=== PATIENT | male | born 1995 | race Hispanic/Latino ===

== ENCOUNTER 2016-10-24 02:05 | Emergency (ER) | payer OTHER, SELFPAY ==
[2016-10-24] MEDS ORDERED: Bupivacaine 0.5% 10 ML VIAL ONE (02:14)
[2016-10-24] MEDS ORDERED: Ibuprofen 800 MG TAB ONE (02:15)
--- NOTE | 2016-10-24 02:32 | ERRECORD ---
[facility] EMERGENCY RECORD HPI TOOTHACHE (02: [facility]) CHIEF COMPLAINT: Patient presents for evaluation of toothache. HISTORIAN: History provided by patient, 20M presents with one month of worsening left lower jaw dental pain. Denies fever or chills. States it is gradually getting worse. Denies trauma, difficulty swallowing. LOCATION: Symptoms are localized. TEETH: lower left 3rd molar (#17),. QUALITY: Pain is dull in nature, described as aching, described as pressure-like. TIME COURSE: Gradual onset of symptoms, Symptoms are worsening. ASSOCIATED WITH: Associated with facial pain. EXACERBATED BY: Patient's condition exacerbated by chewing. RELIEVED BY: Nothing tried for relief. ROS (:22 [facility] CONSTITUTIONAL: Negative constitutional review of systems, Historian denies chills, denies fever. EYES: Negative eye review of systems, Historian denies eye pain, denies eye discharge, denies vision changes. ENT: Historian denies rhinorrhea, Historian denies sore throat. left posterior jaw dental pain. CARDIOVASCULAR: Negative cardiovascular review of systems, Historian denies chest pain, denies palpitations. RESPIRATORY: Negative respiratory review of systems, Historian denies cough, denies shortness of breath. GI: Negative gastrointestinal review of systems, Historian denies abdominal pain, denies constipation, denies diarrhea, denies nausea, denies vomiting. GENITOURINARY MALE: Negative genitourinary review of systems, Historian denies dysuria, denies hematuria. MUSCULOSKELETAL: Negative musculoskeletal review of systems, Historian denies back pain, denies fall, denies injury, denies neck pain. SKIN: Negative skin review of systems, Historian denies rash, denies skin changes. NEUROLOGIC: Negative neurologic review of systems, Historian denies headache. HEMO/LYMPHATIC: Normal hematologic/lymphatic system review, Historian denies abnormal blood clotting. PAST MEDICAL HISTORY (02:21 MVIL) MEDICAL HISTORY: Flu vaccine not up to date, Tetanus not up to date, Pneumococcal vaccine not up to date, No past medical history. verified 07/30/14. REVIEWED 10/24/16. MALE SURGICAL HISTORY: Patient has no surgical history. verified 07/30/14.REVIEWED 10/24/16. PSYCHIATRIC HISTORY: No previous psychiatric history. verified 07/30/14. REVIEWED 10/24/16. SOCIAL HISTORY: Patient currently uses tobacco, Patient &a-1R&a+25V*p+0X*[id number]*c202B*c15G*c2P*p-0X&a-25V&a+1R Name: Aren Rose : 1995 M20 MedRec: [id number] AcctNum: [id number] Prepared: Barbie Oct 24, 2016 02:29 by Interface Page 1 of 3 pMD [facility] EMERGENCY RECORD smokes cigarettes, Patient smokes ocassionally, Patient denies alcohol use, Patient denies drug use. verified 07/30/14. REVIEWED 10/24/16. KNOWN ALLERGIES No Known Drug Allergies CURRENT MEDICATIONS No recorded medications VITAL SIGNS (02:07 [place]) VITAL SIGNS: BP: 137/83, Pulse: 116, Resp: 20, Temp: 98.1 (Oral), Pain: 8, O2 sat: 99 on Room Air, Time: 10/24/2016 02:07. PHYSICAL EXAM (02:22 [facility]) CONSTITUTIONAL: Vital signs reviewed, Patient afebrile, Pulse normal, Blood pressure normal, Respiratory rate normal, Patient appears non toxic, Patient appears pain free, Patient alert and oriented to person, place and time. HEAD: Head exam normal, Head exam included findings of head atraumatic, normocephalic. EYES: Eye exam normal, Eye exam included findings of eyelids normal to inspection, Pupils equally round and reactive to light, Extraocular muscles intact, no nystagmus. ENT: ENT exam normal, Ear exam normal, external ear normal, tympanic membranes normal, no bleeding, Pharynx exam normal, Uvula exam normal, Tonsil exam normal, Mouth exam normal, mucous membranes moist, Teeth with, erupting left lower wisdom tooth. NECK: Neck exam normal, Neck exam included findings of normal range of motion, Trachea midline, no meningeal signs, no cervical adenopathy, no tenderness. RESPIRATORY CHEST: Respiratory and chest exam normal, Respiratory exam included findings of no respiratory distress, Breath sounds clear. CARDIOVASCULAR: Cardiovascular assessment normal, Cardiovascular exam included findings of heart rate regular rate and rhythm, Heart sounds normal. ABDOMEN MALE: Abdominal exam included findings of abdomen nontender, Bowel sounds normal, no distension, no mass, no pulsatile masses, no peritoneal signs, no rigidity, no guarding, no rebound, Rovsing's sign absent. BACK: Back exam normal, Back exam included findings of normal inspection, range of motion normal, no tenderness. UPPER EXTREMITY: Upper extremity exam normal, Upper extremity exam included findings of inspection normal, Range of motion normal, Motor strength normal, Sensation intact, Radial pulse normal. LOWER EXTREMITY: Lower extremity exam normal, Lower extremity exam included findings of inspection normal, Range of motion normal, Motor strength normal, Sensation intact, Posterior tibial pulse &a-1R&a+25V*p+0X*o1198Q*c202B*c15G*c2P*p-0X&a-25V&a+1R Name: Aren Rose : 1995 M20 MedRec: [id number] AcctNum: [id number] Prepared: jyoti Oct 24, 2016 02:29 by Interface Page 2 of 3 pMD [facility] EMERGENCY RECORD normal, Pedal pulse normal. NEURO: Neuro exam normal, Neuro exam findings include patient oriented to person, place and time, Speech normal, Gait normal. SKIN: Skin exam normal, Skin exam included findings of skin warm, dry, and normal in color, no rash. PSYCHIATRIC: Psychiatric exam normal, Normal affect. MEDICATION ADMINISTRATION SUMMARY Drug Name: Motrin, Dose Ordered: 800 mg, Route: Oral, Status: Given, Time: 02:26 10/24/2016, Drug Name: bupivacaine, Dose Ordered: 1 amp(s), Route: Subcutaneous, Status: Given, Time: 02:23 10/24/2016, Detailed record available in Medication Service section. DOCTOR NOTES (:23 [facility]) TEXT: Patient has left posterior jaw wisdom tooth eruption. Performed infraalveolar block, encouraged follow up with dentist for definitive care. PATIENT STATUS: Patient has improved since arrival to emergency department. PATIENT PLAN: The patient will be discharged, The patient will follow up with primary care physician. PROBLEM LIST No recorded problems DIAGNOSIS (02:20 JJA) FINAL: PRIMARY: dental pain. PRESCRIPTION No recorded prescriptions DISPOSITION PATIENT: Disposition Type: Discharge, Disposition: *Discharge Home. (02:20 KARLA) Patient left the department. (02:28 MVFELIPE) Rhodes: DAVID=MD Ugarte Jason MVIL=CAROLINA Savage, Celina &a-1R&a+25V*p+0X*[id number]*c202B*c15G*c2P*p-0X&a-25V&a+1R Name: Aren Rose : 1995 M20 MedRec: [id number] AcctNum: [id number] Prepared: Barbie Oct 24, 2016 02:29 by Interface Page 3 of 3 pMD MTDD
--- NOTE | 2016-10-24 02:37 | PICIS ---
[facility] EMERGENCY RECORD TRIAGE (SunOct 24, 2016 02:13 MVIL) TRIAGE NOTES: C/O LEFT LOWER WISDOM TOOTH PAIN X 1 MOS. INTERMITTENT. TONIGHT BEING THE WORST. (SunOct 24, 2016 02:13 MVIL) PATIENT: NAME: Aren Rose, AGE: 20, GENDER: male, : Sat 1995, TIME OF GREET: SunOct 24, 2016 02:05, PREFERRED LANGUAGE: Hungarian, ETHNICITY: or , ECODE BILLING MAP: [facility], SSN: [id number], Zip Code: [address], KG WEIGHT: 83.91, HEIGHT/LENGTH: 167.64cm, BMI: 29.85, PHONE: , , , PERSON ID: [id number], PCP: NONE. (SunOct 24, 2016 02:13 MVIL) COMPLAINT: TOOTHACHE. (SunOct 24, 2016 02:13 MVIL) ADMISSION: URGENCY: 4 Non Urgent, ADMISSION SOURCE: Home, TRANSPORT: CAR, BED: ER -03. (SunOct 24, 2016 02:13 MVIL) ASSESSMENT: Assessment: C/O LOWER JAW DENTAL PAIN X 1 MOS. INTERMITTENT BUT TONIGHT IS AT ITS WORST., Symptoms began 10/24/2016 02:20, Symptoms began greater than 1 week ago. (02:21 MVIL) PAIN: Patient complains of pain described as, aching, Location LOWER JAW WISDOM TOOTH, Pain is constant, No aggravating factors, No relieving factors. (02:21 MVIL) IMMUNIZATIONS: Flu vaccine not up to date, Tetanus not up to date, Pneumococcal vaccine not up to date. (02:21 MVIL) SIRS SCORING: Heart Rate 110-139 (2), Temp range 96.8-101.1 (0), respiratory rate 12-24 (0), Mental Status altered: no (0), Total SIRS Score 2. (02:21 MVIL) TRIAGE SCREENING: Patient denies suicidal ideation, Patient denies presence of domestic violence. (02:21 MVIL) PROVIDERS: TRIAGE NURSE: Celina Savage RN. (SunOct 24, 2016 02:13 MVIL) VITAL SIGNS: BP 137/83, Pulse 116, Resp 20, Temp 98.1, (Oral), Pain 8, O2 Sat 99, on Room Air, Time 10/24/2016 02:07. (02:07 MVIL) PREVIOUS VISIT ALLERGIES: No Known Drug Allergies. (SunOct 24, 2016 02:13 MVIL) No Known Drug Allergies. (02:21 MVIL) KNOWN ALLERGIES No Known Drug Allergies CURRENT MEDICATIONS No recorded medications VITAL SIGNS (02:07 MVIL) VITAL SIGNS: BP: 137/83, Pulse: 116, Resp: 20, Temp: 98.1 (Oral), Pain: 8, O2 sat: 99 on Room Air, Time: 10/24/2016 02:07. NURSING ASSESSMENT: DENTAL (02:21 MVIL) CONSTITUTIONAL: Patient arrives ambulatory, Gait steady, History obtained from patient, Patient appears comfortable, Patient &a-1R&a+25V*p+0X*t0803D*c202B*c15G*c2P*p-0X&a-25V&a+1R Name: Aren Rose : 1995 M20 MedRec: [id number] AcctNum: [id number] Prepared: SunOct 24, 2016 02:33 by Interface Page 1 of 6 pMD [facility] EMERGENCY RECORD cooperative, Patient alert, Oriented to person, place and time, Skin warm, Skin dry, Skin normal in color, Mucous membranes pink, Mucous membranes moist, Patient is well-groomed, Patient complains of LEFT LOWER WISDOM TOOTH PAIN, X1 MOS. INTERMITTENT. PAIN: aching pain, to left lower back tooth (teeth), Onset of pain 09/23/2016 02:22, constant, on a scale 0-10 patient rates pain as 8, Pain exacerbated by nothing, Nothing has been tried to alleviate the pain. DENTAL: Dental assessment findings include mouth normal, Teeth normal, Associated with. SAFETY: Side rails up, Cart/Stretcher in lowest position, Family at bedside, Call light within reach, Hospital ID band on. NURSING PROCEDURE: DISCHARGE NOTE (02:23 MVIL) DISCHARGE: Patient discharged to home, ambulating without assistance, family driving, accompanied by parent, Summary of Care printed/ provided, Patient requested and was provided an electronic copy of Discharge Instructions, Transition record given to patient, Discharge instructions given to patient, Prescriptions given and instructions on side effects given, Medication reconciliation form given, Above person(s) verbalized understanding of discharge instructions and follow-up care. BELONGINGS: Belongings and valuables with patient at time of discharge include:. MEDICATION ADMINISTRATION SUMMARY Drug Name: Motrin, Dose Ordered: 800 mg, Route: Oral, Status: Given, Time: 02:26 10/24/2016, Drug Name: bupivacaine, Dose Ordered: 1 amp(s), Route: Subcutaneous, Status: Given, Time: 02:23 10/24/2016, Detailed record available in Medication Service section. MEDICATION SERVICE bupivacaine: Order: bupivacaine (bupivacaine HCl) - Dose: 1 amp(s) : Subcutaneous Ordered by: Mohamud Ugarte MD Entered by: Mohamud Ugarte MD SunOct 24, 2016 02:14 Documented as given by: Celina Savage RN SunOct 24, 2016 02:23 Patient, Medication, Dose, Route and Time verified prior to administration. Amount given: 1 AMP, Correct patient, time, route, dose and medication confirmed prior to administration, Patient advised of actions and side-effects prior to administration, Allergies confirmed and medications reviewed prior to administration, Administered by JASON THOMSON, Advised not to ambulate without assistance, Patient in position of comfort, Side rails up, Cart in lowest position, Family at bedside. &a-1R&a+25V*p+0X*u3918I*c202B*c15G*c2P*p-0X&a-25V&a+1R Name: Aren Rose : 1995 M20 MedRec: [id number] AcctNum: [id number] Prepared: SunOct 24, 2016 02:33 by Interface Page 2 of 6 pMD [facility] EMERGENCY RECORD Motrin: Order: Motrin (ibuprofen) - Dose: 800 mg : Oral Ordered by: Mohamud Ugarte MD Entered by: Mohamud Ugarte MD SunOct 24, 2016 02:24 Documented as given by: Celina Savage RN SunOct 24, 2016 02:26 Patient, Medication, Dose, Route and Time verified prior to administration. Amount given: 800MG, Correct patient, time, route, dose and medication confirmed prior to administration, Patient advised of actions and side-effects prior to administration, Allergies confirmed and medications reviewed prior to administration, Patient in position of comfort, Side rails up, Cart in lowest position, Family at bedside. HPI TOOTHACHE (02:21 [facility]) CHIEF COMPLAINT: Patient presents for evaluation of toothache. HISTORIAN: History provided by patient, 20M presents with one month of worsening left lower jaw dental pain. Denies fever or chills. States it is gradually getting worse. Denies trauma, difficulty swallowing. LOCATION: Symptoms are localized. TEETH: lower left 3rd molar (#17),. QUALITY: Pain is dull in nature, described as aching, described as pressure-like. TIME COURSE: Gradual onset of symptoms, Symptoms are worsening. ASSOCIATED WITH: Associated with facial pain. EXACERBATED BY: Patient's condition exacerbated by chewing. RELIEVED BY: Nothing tried for relief. ROS (:22 [facility]) CONSTITUTIONAL: Negative constitutional review of systems, Historian denies chills, denies fever. EYES: Negative eye review of systems, Historian denies eye pain, denies eye discharge, denies vision changes. ENT: Historian denies rhinorrhea, Historian denies sore throat. left posterior jaw dental pain. CARDIOVASCULAR: Negative cardiovascular review of systems, Historian denies chest pain, denies palpitations. RESPIRATORY: Negative respiratory review of systems, Historian denies cough, denies shortness of breath. GI: Negative gastrointestinal review of systems, Historian denies abdominal pain, denies constipation, denies diarrhea, denies nausea, denies vomiting. GENITOURINARY MALE: Negative genitourinary review of systems, Historian denies dysuria, denies hematuria. MUSCULOSKELETAL: Negative musculoskeletal review of systems, Historian denies back pain, denies fall, denies injury, denies neck pain. SKIN: Negative skin review of systems, Historian denies rash, &a-1R&a+25V*p+0X*b0837A*c202B*c15G*c2P*p-0X&a-25V&a+1R Name: Aren Rose : 1995 M20 MedRec: [id number] AcctNum: [id number] Prepared: Barbie Oct 24, 2016 02:33 by Interface Page 3 of 6 pMD [facility] EMERGENCY RECORD denies skin changes. NEUROLOGIC: Negative neurologic review of systems, Historian denies headache. HEMO/LYMPHATIC: Normal hematologic/lymphatic system review, Historian denies abnormal blood clotting. PAST MEDICAL HISTORY (02:21 [place]) MEDICAL HISTORY: Flu vaccine not up to date, Tetanus not up to date, Pneumococcal vaccine not up to date, No past medical history. verified 07/30/14. REVIEWED 10/24/16. MALE SURGICAL HISTORY: Patient has no surgical history. verified 07/30/14.REVIEWED 10/24/16. PSYCHIATRIC HISTORY: No previous psychiatric history. verified 07/30/14. REVIEWED 10/24/16. SOCIAL HISTORY: Patient currently uses tobacco, Patient smokes cigarettes, Patient smokes ocassionally, Patient denies alcohol use, Patient denies drug use. verified 07/30/14. REVIEWED 10/24/16. PHYSICAL EXAM (02:22 [facility]) CONSTITUTIONAL: Vital signs reviewed, Patient afebrile, Pulse normal, Blood pressure normal, Respiratory rate normal, Patient appears non toxic, Patient appears pain free, Patient alert and oriented to person, place and time. HEAD: Head exam normal, Head exam included findings of head atraumatic, normocephalic. EYES: Eye exam normal, Eye exam included findings of eyelids normal to inspection, Pupils equally round and reactive to light, Extraocular muscles intact, no nystagmus. ENT: ENT exam normal, Ear exam normal, external ear normal, tympanic membranes normal, no bleeding, Pharynx exam normal, Uvula exam normal, Tonsil exam normal, Mouth exam normal, mucous membranes moist, Teeth with, erupting left lower wisdom tooth. NECK: Neck exam normal, Neck exam included findings of normal range of motion, Trachea midline, no meningeal signs, no cervical adenopathy, no tenderness. RESPIRATORY CHEST: Respiratory and chest exam normal, Respiratory exam included findings of no respiratory distress, Breath sounds clear. CARDIOVASCULAR: Cardiovascular assessment normal, Cardiovascular exam included findings of heart rate regular rate and rhythm, Heart sounds normal. ABDOMEN MALE: Abdominal exam included findings of abdomen nontender, Bowel sounds normal, no distension, no mass, no pulsatile masses, no peritoneal signs, no rigidity, no guarding, no rebound, Rovsing's sign absent. BACK: Back exam normal, Back exam included findings of normal inspection, range of motion normal, no tenderness. UPPER EXTREMITY: Upper extremity exam normal, Upper extremity &a-1R&a+25V*p+0X*u8642U*c202B*c15G*c2P*p-0X&a-25V&a+1R Name: Aren Rose : 1995 M20 MedRec: [id number] AcctNum: [id number] Prepared: SunOct 24, 2016 02:33 by Interface Page 4 of 6 pMD [facility] EMERGENCY RECORD exam included findings of inspection normal, Range of motion normal, Motor strength normal, Sensation intact, Radial pulse normal. LOWER EXTREMITY: Lower extremity exam normal, Lower extremity exam included findings of inspection normal, Range of motion normal, Motor strength normal, Sensation intact, Posterior tibial pulse normal, Pedal pulse normal. NEURO: Neuro exam normal, Neuro exam findings include patient oriented to person, place and time, Speech normal, Gait normal. SKIN: Skin exam normal, Skin exam included findings of skin warm, dry, and normal in color, no rash. PSYCHIATRIC: Psychiatric exam normal, Normal affect. EVENTS TRANSFER: Triage to Emergency Emergency Room -03. (SunOct 24, 2016 02:13 MVIL) Removed from Emergency Emergency Room -03. (02:28 MVIL) DOCTOR NOTES (02:23 JJAC) TEXT: Patient has left posterior jaw wisdom tooth eruption. Performed infraalveolar block, encouraged follow up with dentist for definitive care. PATIENT STATUS: Patient has improved since arrival to emergency department. PATIENT PLAN: The patient will be discharged, The patient will follow up with primary care physician. PROBLEM LIST No recorded problems DIAGNOSIS (02:20 JJAC) FINAL: PRIMARY: dental pain. DISPOSITION PATIENT: Disposition Type: Discharge, Disposition: *Discharge Home. (02:20 JJAC) Patient left the department. (02:28 MVIL) INSTRUCTION (02:20 JJAC) DISCHARGE: DENTAL PAIN. SPECIAL: Call Dentist for an appointment for follow up for wisdom tooth removal. Ibuprofen for pain. PRESCRIPTION No recorded prescriptions IMAGING *DISCHARGE INSTRUCTIONS RECEIPT: Image captured from scanner. (02:27 MVIL) *SUPPLY CHARGE SHEET: Image captured from scanner. (02:28 MVIL) &a-1R&a+25V*p+0X*m0193Q*c202B*c15G*c2P*p-0X&a-25V&a+1R Name: Aren Rose : 1995 M20 MedRec: [id number] AcctNum: [id number] Prepared: SunOct 24, 2016 02:33 by Interface Page 5 of 6 pMD [facility] EMERGENCY RECORD ADMIN [facility] DIG[facility] SIGN[facility]: MD Ugarte Jason. Rhodes: KARLA=MD Ugarte Jason MVIL=CAROLINA Savage, Celina &a-1R&a+25V*p+0X*a2347P*c202B*c15G*c2P*p-0X&a-25V&a+1R Name: Aren Rose : 1995 1 MedRec: [id number] AcctNum: [id number] Prepared: SunOct 24, 2016 02:33 by Interface Page 6 of 6 pMD MTDD
== END 2016-10-24 02:25 | disposition home or self-care (01) ==
LOC: BURERS 02:05
DX: K08.89 Other specified disorders of teeth and supporting structures (principal); Z72.0 Tobacco use
CPT/HCPCS: 96372; J3490

== ENCOUNTER 2018-04-30 17:52 | Emergency (ER) | payer OTHER, SELFPAY ==
[2018-04-30] MEDS ORDERED: Dexamethasone 4 mg/ml Vial ONE (18:05)
[2018-04-30] MEDS ORDERED: Ibuprofen 800 MG TAB ONE (18:07)
[2018-04-30] MEDS ORDERED: AMOXicillin 250 MG CAP ONE (18:07)
== END 2018-04-30 18:08 | disposition home or self-care (01) ==
LOC: BURERS 17:52
DX: J02.9 Acute pharyngitis, unspecified (principal)
CPT/HCPCS: 99283; J1100